=== PATIENT | male | born 1945 | race Caucasian/White ===

== ENCOUNTER 2019-03-02 09:54 | Emergency (ER) | payer OTHER, SELFPAY ==
[2019-03-02 09:56] VITALS: BP 212/101; PULSE 60; RESP 16; TEMP 36.8; O2SAT 97; BMI 32.5
--- NOTE | 2019-03-02 10:10 | CT_ITS ---
STUDY: CT SCAN OF THE RIGHT HIP WITHOUT CONTRAST. REASON FOR EXAM: Male, 73 years old. Right hip pain for one week. RADIATION DOSAGE (If Supplied By Facility): CTDIvol = ( 15.99 ) mGy, DLP = ( 550.86 ) mGycm. Individualized dose optimization techniques were used for this CT.? TECHNIQUE: Multiple axial cuts were obtained through the region of the right hip without intravenous contrast infusion. Sagittal and coronal reconstruction images were obtained. COMPARISON: None. FINDINGS: There are degenerative changes in the lower lumbar spine. The visualized right sacroiliac joint is unremarkable. The hip joint is within normal limits. There is no significant narrowing. Minimal marginal spurs are seen of the lateral aspect of the acetabular roof. The visualized sacrum and ilium are unremarkable. The pubic rami appear intact. The hip is intact. There is no evidence of fracture. Surgical sutures are seen in the region of the symphysis pubis. The soft tissues are unremarkable.. CT/Extremity Lower without Contra IMPRESSION: 1. Degenerative changes in the visualized lower lumbar spine. 2. No demonstrated acute fracture. Electronically Signed: Keaton Allan MD at 10:46 EST Tel , Service support ,
--- NOTE | 2019-03-02 10:11 | ED.DCSUM_ITS ---
History of Present Illness <Libby Medina - Last Filed: 03/02/19 11:08> Informant: Patient, Family Narrative: 73-year-old male presents with right hip pain. States this began 1 week ago. States that the pain is worse with ambulation and movement. States that he was originally seen at an urgent care and had received prednisone and a muscle relaxer. The pain continued and the patient was seen at [facility] emergency department 3 days ago where he had negative x-rays and received tramadol and a Lidoderm patch. Patient continues to have pain and was unable to get of bed today and had to call EMS to bring him to the emergency department. He denies any fever, chills. Patient states that the pain is sharp in nature. Denies any numbness or tingling. This is the patient's akut[place] hip. He denies any trauma to the area. States that the day before his pain began he was helping a friend move a washer. Does not remember injuring it at that time. <James Harrison - Last Filed: 03/02/19 14:04> Chief Complaint: Lower Extremity Injury Past Medical History <Annette Medinagaurioswaldo - Last Filed: 03/02/19 11:08> Prior records reviewed: Yes Past Medical History: - - Hypertension and hyperlipidemia Lives: Spouse/ Significant Other Smoking Status: Former smoker <James Harrison - Last Filed: 03/02/19 14:04> - Allergies and Home Meds Allergies/Adverse Reactions: Allergies No Known Allergies Allergy (Verified 03/02/19 09:55) Primary Care Physician: Mathieu Bernstein III, MD [Primary Care Provider] - Review of Systems General: Denies: Chills, Fever, Sweats Eyes: Denies: Visual changes - bilaterally, Diplopia ENT: Denies: Rhinorrhea, Sore throat Cardiovascular: Denies: Chest pain, Palpitations Respiratory: Denies: Dyspnea, Cough, Dyspnea on exertion Gastrointestinal: Denies: Abdominal pain, Nausea, Vomiting, Diarrhea, Melena, Hematochezia Genitourinary: Denies: Dysuria, Hematuria, Frequency Musculoskeletal: Reports: Arthralgias. Denies: Back pain, Extremity Pain Skin: Denies: Rash, Wounds Neurological: Denies: Headache, Weakness, Numbness <James Harrison - Last Filed: 03/02/19 14:04> Physical Exam Vital Signs/Narrative: Vital Signs Temp Pulse Resp BP Pulse Ox 03/02/19 09:56 98.2 F 60 16 212/101 H 97 <Libby Medina - Last Filed: 03/02/19 11:08> Vital Signs/Narrative: Vital Signs Temp Pulse Resp BP Pulse Ox 03/02/19 09:56 98.2 F 60 16 212/101 H 97 General: Well nourished, Well developed, No Acute Distress Head: Normocephalic, Atraumatic Eyes: Perrl, EOMI ENT: Moist mucous membranes, No rhinorrhea Neck: Supple, Nontender Cardiovascular: Regular rate, Regular rhythm, No murmurs Respiratory: No distress, CTA bilaterally, Chest nontender Abdomen: Soft, Nontender, Nondistended, Normal bowel sounds Back: Nontender, Normal Inspection Extremities: Tenderness - There is to palpation over the right greater trochanteric region. There is some color changes which are consistent with the patient using a heating pad. No significant erythema. I can range the patient's hip but he does have pain with this range of motion. Skin: Normal color, No rash Neurological: Alert, Oriented x3, Cranial nerves II-XII grossly intact, Normal Strength, Normal Sensation Psychological: Normal affect, Normal Mood <James Harrison - Last Filed: 03/02/19 14:04> Diagnostic/Tx/Re-eval - Medical Decision Making Patient was seen with Dr. Ernst agree with history and physical as above, right hip discomfort for some time after trying to move appliance no direct trauma he has had prior outpatient work-up that is been negative on exam he has near full range of motion of the hip his pain is nonspecific the thigh knee ankle and foot are unremarkable, the abdomen the rest exam is unremarkable, see the full chart for work-up and disposition planning <SatnampolynickoRashidmarichuy - Last Filed: 03/02/19 11:08> - Medical Decision Making Patient appears well nontoxic. Vital signs within normal limits. Full passive ROM completely without significant pain. Low concern for septic arthritis. CT was done to rule out occult fracture which was negative. Patient ambulated with a walker. Patient does continue to have pain and was given Toradol as well as Tylenol. Extensive discussion with the patient as well as his who are concerned that they cannot get into his home given he has 5 stairs leading up to their house. He also continues to have pain. Patient was offered admission at [facility]. They stated they would rather be discharged from our emergency department and drive by POV to be seen at [facility] given an orthopedic surgeon well-known to them works at that hospital. I did touch base with the transfer line and gave report to the [facility] ER that the patient will be coming for evaluation. Patient stable at time of discharge. <James Harrison - Last Filed: 03/02/19 14:04> ED Disposition <Libby Medina - Last Filed: 03/02/19 11:08> <James Harrison - Last Filed: 03/02/19 14:04> - Plan for ED Patient: Disposition: Acute Care Hospital - Other Diagnosis: Hip strain, Uncontrolled pain, Inability to ambulate due to hip Instructions: Hip Strain Prescriptions: Ibuprofen [Motrin] 600 mg PO TID PRN PRN #20 tab PRN Reason: Pain Score 4-5/10 Prescription Printed Acetaminophen [Tylenol Extra Strength] 500 - 1,000 mg PO TID #20 tab Prescription Printed Referrals: Mathieu Bernstein III, MD [Primary Care Provider] -
[2019-03-02] MEDS: Acetaminophen 500 MG Tablet 1000 MG PO (11:49)
[2019-03-02] MEDS: Ketorolac 15 MG/ML Vial IM (11:50)
[2019-03-02 11:54] VITALS: BP 147/62; PULSE 64; RESP 16; O2SAT 96
--- NOTE | 2019-03-02 12:31 | ED.RN ---
RN AMBULATED PATIENT PER REQUEST OF DR. PACE. PT AMBULATED WELL WITH WALKER BUT IS CONCERNED ABOUT STEPS AT HIS HOME. RN INFORMED DR. PACE AT THIS TIME.
[2019-03-02 14:21] VITALS: BP 156/53; PULSE 74; RESP 14; O2SAT 95
[2019-03-02 14:36] VITALS: BP 156/53; PULSE 74; RESP 14; O2SAT 95
== END 2019-03-02 14:38 | disposition short-term general hospital (02) ==
PROVIDERS: Emergency Provider Emergency Medicine; Family Provider Family Medicine; PCP Family Medicine
DX: S76.011A Strain of muscle, fascia and tendon of right hip, initial encounter (principal); X58.XXXA Exposure to other specified factors, initial encounter; Y93.9 Activity, unspecified; Y92.9 Unspecified place or not applicable; I10 Essential (primary) hypertension; E78.5 Hyperlipidemia, unspecified; Z79.899 Other long term (current) drug therapy; Z87.891 Personal history of nicotine dependence
CPT/HCPCS: 73700; 96372; 99285

== ENCOUNTER 2019-07-11 09:00 | Outpatient (RCR) | payer OTHER, SELFPAY ==
--- NOTE | 2019-04-23 12:12 | HP.PTEVAL_ITS ---
Patient's Visit Information MADHAVI MCCLAIN is a 73 year old M referred to Physical Therapy by CLIFFORD BROWN with a diagnosis of Lumbar Fusion. Date of Evaluation: 04/23/19 Physical Therapist: Mami Michaud DPT - Visit Plan Frequency: 2x /Week Duration: 4 Weeks Plan: Postureal correction, postural strengthing, dynamic lumbar stabilization with a neutral spine, bilateral LE ROM, strengthing and stretching - Subjective Findings: April 03, 2019 had a lumbar fusion in L4-L5 with clean out by Dr. Wise. This is his first back surgery. told him he has used his back hard for 70 years- he fell off a ladder 10 years ago but the pain went away. Has had back pain on/off for years- would get a twinge then it would go away. Sunday after (Beginning of February)- he went out on a job came home unloaded the truck- pulled the tool box out and the back the next day. Went to ER- due to pain in the right hip-they did an x-ray and sent him home. 2 days later he could not stand up- called the squat- they took him to [facility]- no images unless he was admitted- transferred to [facility] driven by car-ortho told him he needed to see a spine juancarlos- they did an MRI and he then he had surgery. Work: [employer]. Still has back pain at this time- it comes and goes. When sitting in the reclyner he is a 0/10 If he stands for an extended period of time Worst: 3/10. Uses Tylenol at night for pain. Pain is located in the back and on the inside of the right knee- when he was at the surgeon last week and they are unsure if its from the nerve or he could have screwed up the right knee (since its his bad knee). Describes the pain as twinges but mostly dull and achy. Feels like he is lacking strength- unable to squat and get back up. Wears the back brace standing for long period of time, walking, driving or riding. Sleep: slowly improving- sleeps on side and back (CPAP). No N/T in the LE. No loss or change in bowel or bladder. No currently working but plans to get back to work at some point. Walked around the yard yesterday and is itching to get back. PMHx: melanoma (10 years ago), HTN Meds: Tylenol, HTN Med, synthroid, gabapentin, cholesterol med, allergy med. Limitations: no bending, twisting, or lifting of more than 10 lbs. when left hospital. Saw last week and was told to gently start back into bending, lifting and twisting- wean from back brace. - Objective Posture sitting: fair- mild FH and RS- can correct but does not maintain. Standing posture: fair. wearing lumbar brace. Gait: no deviation noted. HR/TR: able without UE A. SLS: 3 sec then LOB. Sensation/Reflex: WNL in LE. ROM: WFL in all planes of the lumbar and bilateral LE. Flex: HS: severe, Gastroc: moderate. Dural signs: positive on the right. Strength: core: fair, Hip: left: 4+/5 Right: 4/5, Knee Flexion: Left: 5/5, Right: 4/5, Extn: Left: 5/5, Right: 4+/5, Ankle bilaterally: 5/5. Incision: healing well- small portion still has scab and is red- educated to continue to monitor with . - Goals Goal 1:: Patient will be I with HEP and progression Goal Time Frame: 4-6 Weeks Goal 2:: Patient will maintain proper posture t/o tx session to demo increased core s/s Goal Time Frame: 4-6 Weeks Goal 3:: Patient will demo 5/5 strength in bilateral LE Goal Time Frame: 4-6 Weeks Goal 4:: Patient will report no pain for 1 week Goal Time Frame: 4-6 Weeks - Rehabilitation Potential Physical Therapy Diagnosis: Patient presents with hypomobility s/p lumbar fusion- he has decrease strength, flex and muscular endurance leading to poor posture and increased pain with ADL's. Rehabilitation Potential: Good - Anticipated Interventions Patient/Client Instruction: Educate patient on: Benefits of Fitness Program Therapeutic Exercise to Include: Strength training, Endurance training, Agility training, Body mechanics, Postural training, Flexibilty training, Neuromotor development, Dynamic Lumbar Stabilization, Scapular Strength/Stabilization For the Purpose of:: To improve muscle performance and motor function TENS: Yes Cryotherapy (ice pack, ice massage): Yes Thermo therapy (hot pack): Yes Ultrasound (thermal/non thermal): No Thank you for the opportunity to evaluate your patient. For Medicare and Medicare HMO plans, please review the plan of care and approve it. It will need to be FAXED BACK to us at [phone] for Medicare purposes. For Medicare only, by signing this I certify the plan of care. Please let me know if there are questions or concerns regarding this plan of care. Physician Signature: Date:
--- NOTE | 2019-05-16 09:55 | HP.PTREVAL ---
CLIFFORD BROWN, It has been my pleasure to treat MADHAVI MCCLAIN over the last 9 visits for Lumbar Fusion. Please see the progress note below for an update on the physical therapy plan of care! Subjective: PATIENT REPORTS HE WENT DOWN ON HIS LEFT SIDE WHEN HE FELL SUNDAY BUT HE DIDN'T GET HURT EXCEPT HIS LEFT ARM. R THIGH PAIN TODAY 03/28. RLE PAIN IS GETTING BETTER. UP TO 3/10 PAIN AT WORST NOW. THE WORST TIME I HAVE IS WHEN I START TO WALK AT THE [place] OR THE FIRST TWO LAPS BUT CAN WALK WITHOUT RESTING NOW (AT LEAST 8 LAPS/1 MILE). PATIENT REPORTS HIS PAIN, MOBILITY AND STRENGTH ARE ALL IMPROVIING. Objective/Function: PATIENT WAS SEEN TODAY FOR RE-ASSESSMENT OF PROGRESS TOWARD THE SET PT GOALS AND THE NEED FOR FURTHER PHYSICAL THERAPY VS READINESS FOR DISCHARGE. PATIENT IS MAKING GOOD PROGRESS TOWARD ALL SET PT GOALS DESPITE SLIPPING AND FALLING ON THE ICE SUNDAY. HE IS A GOOD CANDIDATE TO CONTINUE PT BASED ON PROGRESS MADE AND ROOM FOR FURTHER IMPROVEMENT. UPON EXAM TODAY: PATIENT AMBULATES INDEP'LY INTO PT WITHOUT ANY ASSISTIVE DEVICES OR GROSS DEVICATIONS NOTED - EQUAL WEIGHTBEARING TIME EVE LE'S. PATIENT REPORTS THAT WHEN HE GETS TIRED HE MIGHT LIMP ON THE RIGHT LE. Motor deficit: EVE LE'S 5/5 WITH MMT'ING EXCEPT RIGHT HIP HAS MILD WEAKNESS COMPARED TO LEFT GRADED 4+/5. Sensory deficit: EVE LE LIGHT TOUCH SENSATION INTACT AND SYMMETRICAL. ROM deficit: TIGHT EVE LE HS'S AND GASTROC SOLEUS COMPLEX'S. Dural Signs: NEGATIVE EVE LE'S. Lumbar mvmt loss: flex - MOD. ext - ALICIA. R SG - MOD. L SG - MOD. PATIENT DENIES PAIN WITH LUMBAR ROM TESTING ALL PLANES BUT IT FEELS VERY TIGHT,. Core strength: FAIR. Palpation: INCISION IS WELL HEALED WITHOUT ANY SIGNS OF INFECTION. OTHER: PATIENT WAS PERFORMING AT LEAST ONE HOME EX WRONG - CORRECTION GIVEN. Plan Plan: CONT PER POC 2X'S A WK X 9-10 MORVE VISITS. Postural correction, postural strengthing, dynamic lumbar stabilization with a neutral spine, bilateral LE ROM, strengthing and stretching. *Return to gentle BLT, wean from back brace Goals Goal 1:: Patient will be I with HEP and progression Goal Time Frame: 4-6 Weeks Goal Progress: Progressing Goal 2:: Patient will maintain proper posture t/o tx session to demo increased core s/s Goal Time Frame: 4-6 Weeks Goal Progress: Progressing Goal 3:: Patient will demo 5/5 strength in bilateral LE Goal Time Frame: 4-6 Weeks Goal Progress: Progressing Goal 4:: Patient will report no pain for 1 week Goal Time Frame: 4-6 Weeks Goal Progress: Progressing Anticipated Interventions Patient/Client Instruction: Educate patient on: Benefits of Fitness Program Therapeutic Exercise to Include: Strength training, Endurance training, Agility training, Body mechanics, Postural training, Flexibilty training, Neuromotor development, Dynamic Lumbar Stabilization, Scapular Strength/Stabilization For the Purpose of:: To improve muscle performance and motor function TENS: Yes Cryotherapy (ice pack, ice massage): Yes Thermo therapy (hot pack): Yes Ultrasound (thermal/non thermal): No Please do not hesitate to contact me at [phone] by phone or if you have questions or concerns regarding this new plan of care! Sincerely, Lyndsey Levine, PT, Cert MDT
--- NOTE | 2019-06-19 09:44 | HP.PTREVAL ---
CLIFFORD BROWN, It has been my pleasure to treat MADHAVI MCCLAIN over the last 19 visits for Lumbar Fusion. Please see the progress note below for an update on the physical therapy plan of care! Subjective: PATIENT REPORTS HE IS DOING MUCH BETTER. STATES HE CAN STAND FOR ABOUT AN HOUR NOW BEFORE HIS BACK PAIN CAUSES HIM TO SIT. June SURGICAL FOLLOW UP PENDING. PATIENT REPORTS HE IS CONFIDENT THAT IT IS JUST GOING TO TAKE TIME TO CONTINUE TO BUILD UP HIS LEG STRENGTH. 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 Objective/Function: PATIENT WAS SEEN TODAY FOR RE-ASSESSMENT OF PROGRESS TOWARD THE SET PT GOALS AND THE NEED FOR FURTHER PHYSICAL THERAPY VS READINESS FOR DISCHARGE. PATIENT IS MAKING GOOD PROGRESS TOWARD ALL SET PT GOALS DESPITE SLIPPING AND FALLING ON THE ICE SUNDAY. HE IS A GOOD CANDIDATE TO CONTINUE PT BASED ON PROGRESS MADE AND ROOM FOR FURTHER IMPROVEMENT AND LACK OF ACCESS FOR [employer] GYM EX'S DUE TO VIRUS. UPON EXAM TODAY: PATIENT AMBULATES INDEP'LY INTO PT WITHOUT ANY ASSISTIVE DEVICES OR GROSS DEVICATIONS NOTED - EQUAL WEIGHTBEARING TIME EVE LE'S. Motor deficit: EVE LE'S 5/5 WITH MMT'ING. Sensory deficit: EVE LE LIGHT TOUCH SENSATION INTACT AND SYMMETRICAL. ROM deficit: TIGHT EVE LE HS'S AND GASTROC SOLEUS COMPLEX'S. Dural Signs: NEGATIVE EVE LE'S. Lumbar mvmt loss: flex - MIN. ext - ALICIA. R SG - MOD. L SG - MOD. PATIENT DENIES PAIN WITH LUMBAR ROM TESTING ALL PLANES BUT IT FEELS VERY TIGHT. Core strength: FAIR Plan Plan: Postural correction, postural strengthing, dynamic lumbar stabilization with a neutral spine, bilateral LE ROM, strengthing and stretching. *Return to gentle BLT* Goals Goal 1:: Patient will be I with HEP and progression Goal Time Frame: 4-6 Weeks Goal Progress: Progressing Goal 2:: Patient will maintain proper posture t/o tx session to demo increased core s/s Goal Time Frame: 4-6 Weeks Goal Progress: Progressing Goal 3:: Patient will demo 5/5 strength in bilateral LE Goal Time Frame: 4-6 Weeks Goal Progress: Progressing Goal 4:: Patient will report no pain for 1 week Goal Time Frame: 4-6 Weeks Goal Progress: Progressing Anticipated Interventions Patient/Client Instruction: Educate patient on: Benefits of Fitness Program Therapeutic Exercise to Include: Strength training, Endurance training, Agility training, Body mechanics, Postural training, Flexibilty training, Neuromotor development, Dynamic Lumbar Stabilization, Scapular Strength/Stabilization For the Purpose of:: To improve muscle performance and motor function TENS: Yes Cryotherapy (ice pack, ice massage): Yes Thermo therapy (hot pack): Yes Ultrasound (thermal/non thermal): No Please do not hesitate to contact me at [phone] by phone or if you have questions or concerns regarding this new plan of care! Sincerely, Lyndsey Levine, PT, Cert MDT
--- NOTE | 2019-07-11 11:06 | HP.PTDCSUM_ITS ---
It has been my pleasure to treat MADHAVI MCCLAIN referred by CLIFFORD BROWN, with the diagnosis of Lumbar Fusion for a total of 28 visit(s). Discharge Date: Please see the following information for a summary of their discharge status. Subjective: PATIENT REPORTS HE IS DOING GREAT. PATIENT REPORTS HIS PHYSICAL CAPABILITIES TODAY ARE BETTER NOW THAN BEFORE THE ACCIDENT. STATES HE DOES THINGS NOW WITH MORE CONFIDENCE THAN BEFORE. STATES HE IS USING HIS LEGS MORE TO DO THINGS TOO. YOU MADE ME SMARETER. PATIENT REPORTS HE IS GLAD HE WAS ABLE TO CONTINUE PT. PATIENT IS H[facility]ING [facility] [place] AND[facility]OR [facility] OPEN BACK UP. Lumbar Spine Pain Intensity (Out of 10): 0 RIGHT THIGH Pain Intensity (Out of 10): 0 RIGHT LEG Pain Intensity (Out of 10): 0 RIGHT KNEE Pain Intensity (Out of 10): 0 % Improvement: 100 Objective/Function: PATIENT WAS SEEN TODAY FOR RE-ASSESSMENT OF PROGRESS TOWARD THE SET PT GOALS AND THE NEED FOR FURTHER PHYSICAL THERAPY VS READINESS FOR DISCHARGE. ALL GOALS HAVE BEEN MET. 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 HE IS APPROPRIATE FOR DISCHARGE FROM [facility] AT THIS TIME AND IS AGREEABLE. UPON EXAM TODAY HE STILL HAS DECREASED LUMBAR ROM FOLLOWS: Lumbar mvmt loss: flex - MIN. ext - ALICIA. R SG - MOD. L SG - MIN TO MOD. EVE LE STRENGTH IS GOOD AND HIS CORE STRENGTH IS FAIR TO GOOD AND IMPROVING. PATIENT DENIES PAIN THROUGHOUT RE-CHECK. Goal 1:: Patient will be I with HEP and progression Goal Progress: Goal Met Goal 2:: Patient will maintain proper posture t/o tx session to demo increased core s/s Goal Progress: Goal Met Goal 3:: Patient will demo 5/5 strength in bilateral LE Goal Progress: Goal Met Goal 4:: Patient will report no pain for 1 week Goal Progress: Goal Met Plan: D/C. PATIENT AGREEABLE If there are questions or concerns regarding this patient's physical therapy, please feel free to call me at [phone]. Thank you for the referral of this patient. Sincerely, Lyndsey Levine, PT, Cert MDT
== END 2019-07-11 19:00 | disposition home or self-care (01) ==
LOC: PT 09:00
PROVIDERS: PCP Family Medicine
DX: M48.062 Spinal stenosis, lumbar region with neurogenic claudication (principal)
CPT/HCPCS: 97110; 97162; 97164; 97530

== ENCOUNTER 2021-07-04 11:00 | Outpatient (RCR) | payer OTHER, SELFPAY ==
--- NOTE | 2021-06-07 11:52 | HP.PTEVAL ---
Patient's Visit Information MADHAVI MCCLAIN is a 75 year old M referred to Physical Therapy by BURKE LANDA with a diagnosis of POST LAMINECTOMY SYNDROME. Date of Evaluation: 06/07/21 Physical Therapist: Lyndsey Levine PT, Cert MDT - Visit Plan Frequency: 2-3x /Week Duration: 4-6 Weeks Plan: AQUATIC THERAPY FOR POSTURE CORRECTION/STRENGTHENING, INSTRUCTION IN APPROPRIATE BODY MECHANICS AND ACTIVITY MODIFICATIONS. DLS STARTING WITH A NEUTRAL SPINE PROGRESSING ROM TOLERATED. EVE LE ROM, STRETCHING AND STRENGTHENING. HEP INSTRUCTION. INSTRUCTION IN APPROPRIATE RETURN TO GYM EX EQUIPMENT USE AT THE [facility]. 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 LAST WORKED ABOUT 3 WKS AGO. RECENTLY HAS NOT BEEN ABLE TO WORK DUE TO BACK PAIN. Disability: NO. Present symptoms: EVE LOW BACK/BUTTOCK PAIN. Present since: AUGUST 2020. Pain Scale: WORST 8/10, LEAST 0/10. Currently: 0/10. Commenced as a result of: NO APPARENT REASON OTHER THAN TRAVEL AND ON ONE OF THEIR HIKES CLIMBED OVER SOME ROCKS AND STEPPING DOWN HARD. WENT TO [place] IN AUGUST AND THEN TRAVELED TO [place] FOR 3 WEEKS. WALKED A LOT. Symptoms at onset: ANNOYING LBP. IN JANUARY WHEN HE CAME BACK FROM [place] IT WAS WORSE SO WENT BACK TO DR. LANDA. Worse: SUDDEN TWISTS LIKE WHEN SLIPPED ON THE ICE ON STEPS AT HOME APR 2021. FELL ON ICE TOO TAKING GARBAGE OUT. SITTING IN CERTAIN CHAIRS, SOME WALKING. MORNING WHEN FIRST GETS OUT OF BED. Better: THE DAY PROGRESSES, ACTUALLY GOES WAY. HOT SHOWER. TENS UNIT. Disturbed sleep: NO. Previous history/Previous treatment: LUMBAR FUSION L45 04/04/19 FOLLOWED BY PT WITH GREAT OUTCOME. Treatment this episode: PREDNISONE AND MUSCLE RELAXER WITH BENEFIT. ALEX YESTERDAY - IT WAS AMAZING. PATIENT REPORTS THAT WHEN HE GOT UP LAST NIGHT HE DIDN'T HAVE ANY PAIN AND HE COULD WALK UP STRAIGHT. NO PROBLEM THIS MORING EITHER BUT STILL A LITTLE OCCASSIONAL PAIN. Coughing/sneezing/straining: NO. Gait: WALKING LEANING TO LEFT SIDE BEFORE THE SHOT. Difficulty initiating urination: NO. DENIES BOWEL AND BLADDER DYSFUNCTION. Unexplained weight loss: NO. Imaging: RECENT X-RAYS AND MRI SHOWING SEVERE DEGENERATION. PMH/Recent major surgery: HIGH CHOLESTEROL, HTN, THYROID DZ, RLS. OTHER: WAS WALKING A FEW DAYS A WEEK AND USING MACHINES A FEW DAYS A WEEK AT THE [facility] UNTIL STOPPED MACHINES ABOUT JAN 2021 DUE TO PAIN. STILL WALKING. - Objective Sitting/Standing Posture: FAIR. REDUCED LORDOSIS. NO RELEVENT LATERAL SHIFT. Active Correction of posture: NE. Other Observations: INDEP GAIT AND TRANSFERS. Motor deficit: EVE LE'S GROSSLY 5/5. Sensory deficit: EVE LE LIGHT TOUCH SENSATION GROSSLY INTACT AND SYMMETRICAL. ROM deficit: TIGHT EVE LE HIP FLEXORS, HS'S AND GASTROC SOLEUS COMPLEX'S. Dural Signs: NEGATIVE EVE LE'S. Lumbar mvmt loss: flex - MIN. ext - ALICIA. R SG - MOD TO ALICIA. L SG - MOD. Core strength: FAIR. Palpation: NO ACUTE TENDERNESS. TREATMENT: NEUROMUSCULAR REEDUCATION - RETRAINING OF MVMT AND POSTURE FOR SITTING, LYING AND STANDING ACTIVITIES. - Balance/Special Test Scores Oswestry Low Back Score: 5 - Goals Goal 1:: DECREASE C/O LOW BACK PAIN Goal Time Frame: 4-6 Weeks Goal 2:: IMPROVE LIFTING, SITTING, SLEEP, SOCIAL LIFE AND WORK/HOMEMAKING FUNCTION Goal Time Frame: 4-6 Weeks Goal 3:: INSTRUCT IN PROPHYLAXIS Goal Time Frame: 4-6 Weeks - Anticipated Interventions Patient/Client Instruction: Educate patient on: Condition, Plan of Care, Risk Factors For the Purpose of:: To improve self management Therapeutic Exercise to Include: Strength training, Body mechanics, Postural training, Flexibilty training, Neuromotor development, In an aquatic setting, Dynamic Lumbar Stabilization For the Purpose of:: To decrease pain, To increase ROM, To improve muscle performance and motor function, To increase tolerance to activity/condition/position, To improve ability of physical actions for home/community/work/leisure Thank you for the opportunity to evaluate your patient. For Medicare and Medicare HMO plans, please review the plan of care and approve it. It will need to be FAXED BACK to us at [phone] for Medicare purposes. For Medicare only, by signing this I certify the plan of care. Please let me know if there are questions or concerns regarding this plan of care. Physician Signature: Date:
--- NOTE | 2021-07-04 11:35 | HP.PTREVAL_ITS ---
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 Please see the progress note below for an update on the physical therapy plan of care! Subjective: PATIENT REPORTS HE LEFT EACH AQUATIC THERAPY SESSION FEELING BETTER THAN WHEN HE ARRIVED. PATIENT REPORTS THAT IT HAS BECOME IMPOSSIBLE TO DO HIS HOME EX'S THOUGH ABOUT A WEEK AFTER HE STARTED THERAPY ON A SUNDAY WHEN HE WAS STRAINING TO CUT HIS TOE NAILS. ALEX 06/22/21 WITHOUT BENEFIT. LEFT LOW BACK PAIN IS STILL GONE FROM ALEX'S REC'D 06/06/21. 06/06/21 ALEX'S ALSO DECREASED R LBP FOR A WEEK BUT THEN THE PAIN CAME BACK WITH A VENGENCE. REA'T WITH DR. LANDA PENDING NEXT SUNDAY. HAS BEEN ON VACATION IN [place] THE PAST WEEK. SPENT TIME IN THE POOL IN [place] AND DID SOME OF HIS EX'S AND THAT HELPED. WALKED 2 BLOCKS TO THE POOL AND BACK EACH TIME AND EASIER TO WALK BACK AFTER THE POOL EX'S THAN WALKING THERE. PATIENT REPORTS HE DOES NOT RELATE HIS INCREASED PAIN AND DECREASED FUNCTION TO THE THERAPY. Objective/Function: PATIENT WAS SEEN TODAY FOR RE-ASSESSMENT OF PROGRESS TOWARD THE SET PT GOALS AND THE NEED FOR FURTHER PHYSICAL THERAPY VS READINESS FOR DISCHARGE. PATIENT IS NOT IMPROVING AND HAS WORSENED. HE IS APPROPRIATE FOR PHYSICIAN RE-CHECK AT THIS POINT AND HE IS AGREEABLE. UPON EXAM TODAY: THIS PATIENT LIMPS INTO PT WITH A RELEVENT LEFT LATERAL SHIFT. SENSATION: EVE LE LIGHT TOUCH SENSATION GROSSLY INTACT AND SYMMETRICAL. Dural Signs: NEGATIVE EVE LE'S. Lumbar mvmt loss: flex - MIN. ext - ALICIA. R SG - ALICIA. L SG - MOD. PATIENT C/O INCREASED PAIN WITH LUMBAR ROM TESTING ALL PLANES. STRENGTH: EVE LE STRENGTH IS STILL 5/5 WITH MMT'ING EXCEPT HIPS GRADED 4/5 AND APPEARS TO BE PAIN LIMITED. Palpation: NO ACUTE TENDERNESS IN THE LUMBOSACRAL REGIONS. Plan Plan: D/C TO FOLLOW UP WITH DR. LANDA. Balance/Gait/Functional tests - Balance/Special Test Scores Oswestry Low Back Score: 22 Goals Goal 1:: DECREASE C/O LOW BACK PAIN Goal Time Frame: 4-6 Weeks Goal Progress: Not Progressing Goal 2:: IMPROVE LIFTING, SITTING, SLEEP, SOCIAL LIFE AND WORK/HOMEMAKING FUNCTION Goal Time Frame: 4-6 Weeks Goal Progress: Not Progressing Goal 3:: INSTRUCT IN PROPHYLAXIS Goal Time Frame: 4-6 Weeks Goal Progress: Not Progressing Anticipated Interventions Patient/Client Instruction: Educate patient on: Condition, Plan of Care, Risk Factors For the Purpose of:: To improve self management Therapeutic Exercise to Include: Strength training, Body mechanics, Postural training, Flexibilty training, Neuromotor development, In an aquatic setting, Dynamic Lumbar Stabilization For the Purpose of:: To decrease pain, To increase ROM, To improve muscle performance and motor function, To increase tolerance to activity/condition/position, To improve ability of physical actions for home/community/work/leisure Please do not hesitate to contact me at [phone] by phone or if you have questions or concerns regarding this new plan of care! Sincerely, Lyndsey Levine, PT, Cert MDT
--- NOTE | 2021-07-04 11:36 | HP.PTDCSUM ---
It has been my pleasure to treat MADHAVI MCCLAIN referred by BURKE LANDA, with the diagnosis of POST LAMINECTOMY SYNDROME for a total of 10 visit(s). Discharge Date: 07/04/21 Please see the following information for a summary of their discharge status. Subjective: PATIENT REPORTS HE LEFT EACH AQUATIC THERAPY SESSION FEELING BETTER THAN WHEN HE ARRIVED. PATIENT REPORTS THAT IT HAS BECOME IMPOSSIBLE TO DO HIS HOME EX'S THOUGH ABOUT A WEEK AFTER HE STARTED THERAPY ON A SUNDAY WHEN HE WAS STRAINING TO CUT HIS TOE NAILS. ALEX 06/22/21 WITHOUT BENEFIT. LEFT LOW BACK PAIN IS STILL GONE FROM ALEX'S REC'D 06/06/21. 06/06/21 ALEX'S ALSO DECREASED R LBP FOR A WEEK BUT THEN THE PAIN CAME BACK WITH A VENGENCE. REA'T WITH DR. LANDA PENDING NEXT SUNDAY. HAS BEEN ON VACATION IN [place] THE PAST WEEK. SPENT TIME IN THE POOL IN [place] AND DID SOME OF HIS EX'S AND THAT HELPED. WALKED 2 BLOCKS TO THE POOL AND BACK EACH TIME AND EASIER TO WALK BACK AFTER THE POOL EX'S THAN WALKING THERE. PATIENT REPORTS HE DOES NOT RELATE HIS INCREASED PAIN AND DECREASED FUNCTION TO THE THERAPY. Lumbar Spine Pain Intensity (Out of 10): 4 % Improvement: 0 Objective/Function: PATIENT WAS SEEN TODAY FOR RE-ASSESSMENT OF PROGRESS TOWARD THE SET PT GOALS AND THE NEED FOR FURTHER PHYSICAL THERAPY VS READINESS FOR DISCHARGE. PATIENT IS NOT IMPROVING AND HAS WORSENED. HE IS APPROPRIATE FOR PHYSICIAN RE-CHECK AT THIS POINT AND HE IS AGREEABLE. UPON EXAM TODAY: THIS PATIENT LIMPS INTO PT WITH A RELEVENT LEFT LATERAL SHIFT. SENSATION: EVE LE LIGHT TOUCH SENSATION GROSSLY INTACT AND SYMMETRICAL. Dural Signs: NEGATIVE EVE LE'S. Lumbar mvmt loss: flex - MIN. ext - ALICIA. R SG - ALICIA. L SG - MOD. PATIENT C/O INCREASED PAIN WITH LUMBAR ROM TESTING ALL PLANES. STRENGTH: EVE LE STRENGTH IS STILL 5/5 WITH MMT'ING EXCEPT HIPS GRADED 4/5 AND APPEARS TO BE PAIN LIMITED. Palpation: NO ACUTE TENDERNESS IN THE LUMBOSACRAL REGIONS. Goal 1:: DECREASE C/O LOW BACK PAIN Goal Progress: Not Progressing Goal 2:: IMPROVE LIFTING, SITTING, SLEEP, SOCIAL LIFE AND WORK/HOMEMAKING FUNCTION Goal Progress: Not Progressing Goal 3:: INSTRUCT IN PROPHYLAXIS Goal Progress: Not Progressing Plan: D/C TO FOLLOW UP WITH DR. LANDA. If there are questions or concerns regarding this patient's physical therapy, please feel free to call me at [phone]. Thank you for the referral of this patient. Sincerely, Lyndsey Levine, PT, Cert MDT Balance/Gait/Functional tests - Balance/Special Test Scores Oswestry Low Back Score: 22
== END 2021-07-04 19:00 | disposition home or self-care (01) ==
LOC: PT 11:00
PROVIDERS: PCP Internal Medicine
DX: M96.1 Postlaminectomy syndrome, not elsewhere classified (principal)
CPT/HCPCS: 97112; 97113; 97162; 97164

== ENCOUNTER 2021-08-23 10:30 | Outpatient (RCR) | payer MEDICARE, OTHER, SELFPAY ==
--- NOTE | 2021-08-05 16:15 | HP.PTEVAL_ITS ---
Patient's Visit Information MADHAVI MCCLAIN is a 76 year old M referred to Physical Therapy by Dr. Lazaro Cardenas MD with a diagnosis of LUMBAR FUSION REVISION L45 AND L2-L4 FUSION 07/21/21. Date of Evaluation: 08/05/21 Physical Therapist: Lyndsey Levine, PT, Cert MDT - Visit Plan Frequency: 2-3x /Week Duration: 4-6 Weeks Plan: NO AGGRESSIVE PHYSICAL THERAPY. DO NOT INCREASE PAIN WITH EX. POSTURE CORRECTION/STRENGTHENING, INSTRUCTION IN APPROPRIATE BODY MECHANICS AND ACTIVITY MODIFICATIONS. DLS STARTING WITH A NEUTRAL SPINE (PROGRESSING ROM TOLERATED WHEN OK'D BY SURGEON). EVE LE ROM, STRETCHING AND STRENGTHENING. HEP INSTRUCTION. 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 Present symptoms: LOW BACK PAIN EVE. RIGHT MEDIAL KNEE PAIN. DENIES EVE LE NUMBNESS AND TINGLING. Present since: FEB 2019. Pain Scale: WORST 8/10, LEAST 0/10. Currently: 3/10. Commenced as a result of: LIFTING TOOL BOX OUT OF BACK OF [employer]IAN [employer]. Symptoms at onset: BACK AND RIGHT LE PAIN. Worse: PROLONGED SITTING, STADNING UP, SITTING DOWN, NOT STANDING UP STRAIGHT WHEN WALKING, STAIRS, SERIOUS PT. Better: TRAMADOL. Disturbed sleep: YES. Previous history/Previous treatment: MAR 2019 L45 FUSION. PT. ALEX'S. Treatment this episode: LUMBAR FUSION REVISION AND L2-L4 FUSION 07/21/21. Coughing/sneezing/straining: POSITIVE. Gait: PATIENT REPORTS HE WALKS BADLY AND HAS TO CONCENTRATE TO TRY TO KEEP HIS FEET FORWARD. WAS ABLE TO WALK BETTER LAST SUNDAY (1800 FEET) THAN HE CAN NOW DUE TO INACTIVITY. INCREASED DIFFICULTY WALKING AFTER PROLONGED SITTING IN W/C YESTERDAY 4-5 HOURS WAITING TO BE DISCHARGED FROM [facility]. Bowel or Bladder Dysfunction: NO. Accidents: NO. Unexplained weight loss: NO. Imaging: NONE SINCE SURGERY THAT PATIENT IS AWARE OF. PMH/Recent major surgery: UNREMARKABLE. OTHER: PATIENT DENIES ANY COMPLICATIONS AFTER SURGERY. 5 STEPS INTO HOUSE AND 13 STEPS UP TO SECOND FLOOR. FOLLOW UP PENDING SUNDAY WITH SURGEON (DR. LANDA). NO BENDING, LIFTING >5 LBS OR TWISTING. NO DRIVING. NO BACK BRACE. - Objective Sitting/Standing Posture: POOR. REDUCED LUMBAR LORDOSIS. Active Correction of posture: WORSE. Other Observations: THIS PATIENT AMBULATES INDEP'LY INTO PT WITH A FWW THAT IS SLIGHTLY TOO LOW. ADJUSTED BY THIS PT. DECREASED CADANCE. EVE TOEING OUT. DIFFICULTY TRANSITIONING FROM SIT TO STAND AND REVERSE AND VERY UE DEPENDENT TO DO SO. Sensory deficit: EVE LE LIGHT TOUCH SENSATION GROSSLY INTACT AND SYMMETRICAL - FEET NT. ROM deficit: TIGHT EVE LE HIP FLEXORS, HS AND GASTROC SOLEUS COMPLEX'S. Motor deficit: EVE HIPS 3+/5, KNEES 5/5, ANKLES 5/5. Dural Signs: POSITIVE EVE LE'S. Lumbar mvmt loss: NT. Core strength: POOR. TREATMENT: THER ACT - HOME INSTRUCTIONS GIVEN FOR SEATED AND SUPINE EVE LE DURAL STRETCHING X 10 TO 20 REPS 4-5 TIMES A DAY TOLERATED AND A WALKING PROGRAM. - Balance/Special Test Scores Oswestry Low Back Score: 33 TUG Test Time Seconds: 28.06 30 Second Chair Rise Test Seconds: 4 - Goals Goal 1:: DECREASE C/O LOW BACK PAIN Goal Time Frame: 4-6 Weeks Goal 2:: IMPROVE PERSONAL CARE, LIFTING, WALKING, SITTING, STANDING, SOCIAL LIFE, TRAVEL AND WORK/HOMEMAKING FUNCTION Goal Time Frame: 4-6 Weeks Goal 3:: INSTRUCT IN PROPHYLAXIS Goal Time Frame: 4-6 Weeks - Anticipated Interventions Patient/Client Instruction: Educate patient on: Condition, Plan of Care, Risk Factors For the Purpose of:: To improve self management Therapeutic Exercise to Include: Strength training, Body mechanics, Postural training, Flexibilty training, Gait and locomotor training, Neuromotor development, Dynamic Lumbar Stabilization For the Purpose of:: To decrease pain, To improve muscle performance and motor function, To increase tolerance to activity/condition/position, To improve ability of physical actions for home/community/work/leisure, To improve gait and locomotor functions Thank you for the opportunity to evaluate your patient. For Medicare and Medicare HMO plans, please review the plan of care and approve it. It will need to be FAXED BACK to us at [phone] for Medicare purposes. For Medicare only, by signing this I certify the plan of care. Please let me know if there are questions or concerns regarding this plan of care. Physician Signature: Date:
--- NOTE | 2021-08-23 11:29 | HP.PTREVAL ---
Dr. Lazaro Cardenas MD, It has been my pleasure to treat MADHAVI MCCLAIN over the last 9 visits for LUMBAR FUSION REVISION L45 AND L2-L4 FUSION 07/21/21. Please see the progress note below for an update on the physical therapy plan of care! Subjective: PATIENT REPORTS HE GOT A GOOD NIGHTS SLEEP AND FELT GOOD WHEN HE GOT UP. PATIENT REPORTS HE HASN'T FELT THIS GOOD SINCE ABOUT SEPTEMBER 2020 AFTER IT STARTED TO SETTLE DOWN FROM CLIMBING THE ROCKS WITH HIS SON. FROM ABOUT SEPTEMBER ON IT JUST KEPT GETTING WORSE. PATIENT REPORTS THAT HIS MAIN ACTIVITY GOAL IS TO BE ABLE TO WALK WHEN ON VACATIONS. Objective/Function: PATIENT WAS SEEN TODAY FOR RE-ASSESSMENT OF PROGRESS TOWARD THE SET PT GOALS AND THE NEED FOR FURTHER PHYSICAL THERAPY VS READINESS FOR DISCHARGE. UPON EXAM TODAY PATIENT IS INDEP WITH HEP AND IMPROVING. HE IS ABLE TO CONTINUE ON HIS OWN AT THIS POINT AND NEED FOR CONTINUED PT CAN BE EVALUTATED AT SURGICAL FOLLOW UP AT THE END OF THIS MONTH. PATIENT HAS MADE GREAT PROGRESS WITH PT AND AGREEABLE TO CONTINUING ON HIS OWN AT THIS POINT. LAST EXERCISE SESSION INCLUDED THE FOLLOWING: NUSTEP X 6 MIN, L-6, >70 SPM (SEAT #7, ARMS #10) INDEP PRIOR TO SESSION. HEEL RAISES 2X15 EA. NO UE'S. SLANT BOARD CALF STRETCHING 3X30. SIT TO STAND 2X15 WITHOUT UE ASSIST. K-4 MR'S 2X15. K-3 LAE'S 2X15. K-2 EVE MULTIFIDUS PUSH OUTS 2X15 EA. UP AND DOWN 2 FLIGHTS OF STEPS WITHOUT UE ASSIST X 2 SETS. INSTRUCTED IN SEATED AND SUPINE EVE LE DURAL STRETCHING 2X10 EA SEVERAL TIMES A DAY. PATIENT HAS TBANDS FOR HEP. Plan Plan: HOLD PT. PATIENT TO CONTINUE WITH INDEP EX UNTIL ORTHO FOLLOW UP. NO AGGRESSIVE PHYSICAL THERAPY. DO NOT INCREASE PAIN WITH EX. POSTURE CORRECTION/STRENGTHENING, INSTRUCTION IN APPROPRIATE BODY MECHANICS AND ACTIVITY MODIFICATIONS. DLS STARTING WITH A NEUTRAL SPINE (PROGRESSING ROM TOLERATED WHEN OK'D BY SURGEON). EVE LE ROM, STRETCHING AND STRENGTHENING. HEP INSTRUCTION. Balance/Gait/Functional tests - Balance/Special Test Scores Oswestry Low Back Score: 7 TUG Test Time Seconds: 28.06 Tug Test: 20-30sec.=variable mobility 30 Second Chair Rise Test Seconds: 4 Goals Goal 1:: DECREASE C/O LOW BACK PAIN Goal Time Frame: 4-6 Weeks Goal Progress: Progressing Goal 2:: IMPROVE PERSONAL CARE, LIFTING, WALKING, SITTING, STANDING, SOCIAL LIFE, TRAVEL AND WORK/HOMEMAKING FUNCTION Goal Time Frame: 4-6 Weeks Goal Progress: Progressing Goal 3:: INSTRUCT IN PROPHYLAXIS Goal Time Frame: 4-6 Weeks Goal Progress: Progressing Anticipated Interventions Patient/Client Instruction: Educate patient on: Condition, Plan of Care, Risk Factors For the Purpose of:: To improve self management Therapeutic Exercise to Include: Strength training, Body mechanics, Postural training, Flexibilty training, Gait and locomotor training, Neuromotor development, Dynamic Lumbar Stabilization For the Purpose of:: To decrease pain, To improve muscle performance and motor function, To increase tolerance to activity/condition/position, To improve ability of physical actions for home/community/work/leisure, To improve gait and locomotor functions Please do not hesitate to contact me at [phone] by phone or if you have questions or concerns regarding this new plan of care! Sincerely, Lydnsey Levine, PT, Cert MDT
--- NOTE | 2021-12-27 13:04 | HP.PT.NRP ---
MADHAVI MCCLAIN was seen in my office for initial evaluation on 08/05/21. The following Plan of Care was established for this patient: Initial Frequency: 2-3x /Week Initial Duration: 4-6 Weeks Patient/Client Instruction: Educate patient on: Condition, Plan of Care, Risk Factors For the Purpose of:: To improve self management Therapeutic Exercise to Include: Strength training, Body mechanics, Postural training, Flexibilty training, Gait and locomotor training, Neuromotor development, Dynamic Lumbar Stabilization For the Purpose of:: To decrease pain, To improve muscle performance and motor function, To increase tolerance to activity/condition/position, To improve ability of physical actions for home/community/work/leisure, To improve gait and locomotor functions This patient was last seen in our office 08/23/21. Pertinent comments regarding their Physical therapy will appear below: This patient has not returned to Physical Therapy and is appropriate to return to MD for further follow-up as needed. At this point I will be discontinuing this patient from physical therapy. I would be happy to see this patient again in the future if found appropriate by the physician. Thank you! Lyndsey Levine, PT, Cert MDT Balance/Gait/Functional tests - Balance/Special Test Scores Oswestry Low Back Score: 7 TUG Test Time Seconds: 28.06 Tug Test: 20-30sec.=variable mobility 30 Second Chair Rise Test Seconds: 4
== END 2021-08-23 19:00 | disposition home or self-care (01) ==
LOC: PT 10:30
PROVIDERS: PCP Internal Medicine; Referring Provider Physical Medicine & Rehabilitation; Visit Provider Physical Medicine & Rehabilitation
DX: M48.062 Spinal stenosis, lumbar region with neurogenic claudication (principal)
CPT/HCPCS: 97110; 97112; 97162; 97164; 97530

== ENCOUNTER 2023-07-02 08:30 | Outpatient (RCR) | payer MEDICARE, OTHER, SELFPAY ==
--- NOTE | 2023-04-10 13:01 | HP.PTEVAL ---
Patient's Visit Information Visit Information Visit Information: MADHAVI MCCLAIN is a 77 year old M referred to Physical Therapy by Dr. Joe Moran MD with a diagnosis of L RC syndrome. Date of Evaluation: 04/10/23 Physical Therapist: LEXIS Patrick Visit Plan Frequency: 2x /Week Duration: 2 Months Plan: 2X/ week for 8 weeks for pec stretches, scapular strength/postural, RC strength with HEP HEP: corner pec stretch, and green mid rows Subjective Subjective: Pt thinks that he hurt his shoulder when he was redoing his bathroom in August/September. He was using a power dry wall lui overhand with his L arm overhead. It was a long narrow bathroom and got himself in awkward positions. His shoulder started to hurt then and it did not get any better. He had trouble sleeping in the fall (it would burn). He normally starts to sleep on his L side but he now can not do that. He just saw his Dr last week and looked at the MRI that they had done and it showed a frayed RC cuff and no surgery can be done. He had a cortisone shot prior to [place] and it helped for about 2 weeks...back to laying on the L side and then it was back. It is not a s bad as it was prior to the shot. Pain R shoulder pain: Pain Intensity (Out of 10): 1 Pain Intensity Range: 5 Objective Objective: R handed UE AROM: B WFL... tighter at end range flex/abd R shoulder flex 11.8 and L 8.2 R shoulder abd 14.3 and L 11.3 R shoulder ER 16.5 and L 15.1 R shoulder IR 15.8 and L 14 Posture: rounded shoulders, weak scapular muscles and tight pecs Balance/Special Test Scores Quick DASH Score: 20.4525 Goals Goal 1:: I HEP Goal Time Frame: 6-8 Weeks Goal 2:: Sit with more upright posture Goal Time Frame: 6-8 Weeks Goal 3:: Increase L shoulder strength (at the time of the eval: R shoulder flex 11.8 and L 8.2 R shoulder abd 14.3 and L 11.3 R shoulder ER 16.5 and L 15.1 R shoulder IR 15.8 and L 14) Goal Time Frame: 6-8 Weeks Goal 4:: Be able to resume ADL's/overhead activities with L UE without pain Goal Time Frame: 6-8 Weeks Rehabilitation Potential Rehabilitation Potential: Good Anticipated Interventions Patient/Client Instruction: Educate patient on: Condition and Plan of Care For the Purpose of:: To decrease pain, To increase ROM, To improve nutrient delivery to tissue, To improve muscle performance and motor function, To improve ability to perform ADL's, To increase tolerance to activity/condition/position, To improve health of tissue, To decrease soft tissue restriction and To increase flexibility/ROM Therapeutic Exercise to Include: Strength training, Postural training, Flexibilty training, Neuromotor development, Passive ROM, Active ROM and Scapular Strength/Stabilization For the Purpose of:: To decrease pain, To increase ROM, To improve muscle performance and motor function, To improve ability to perform ADL's, To improve performance and independence with ADL's, To decrease level of supervision to perform tasks, To improve health of tissue, To decrease soft tissue restriction and To increase flexibility/ROM Manual Therapy Techniques to Include: Mobilization, Passive ROM and Soft tissue mobilization For the Purpose of:: To increase ROM, To improve nutrient delivery to tissue and To improve muscle performance and motor function Cryotherapy (ice pack, ice massage): Yes Thermo therapy (hot pack): Yes For the Purpose of:: To decrease pain, To decrease swelling/inflammation and To improve nutrient delivery to tissue Text: Thank you for the opportunity to evaluate your patient. For Medicare and Medicare HMO plans, please review the plan of care and approve it. It will need to be FAXED BACK to us at [phone] for Medicare purposes. For Medicare only, by signing this I certify the plan of care. Please let me know if there are questions or concerns regarding this plan of care. Physician Signature: Date:
--- NOTE | 2023-05-08 12:21 | HP.PTREVAL ---
Re-Evaluation Intro: Dr. Joe Moran MD, It has been my pleasure to treat MADHAVI MCCLAIN over the last 9 visits for L RC syndrome. Please see the progress note below for an update on the physical therapy plan of care! Subjective Subjective: Putting a coat on a coat hook hurts on the L or putting something overhead. In the last week he could feel his shoulder a little more than the week before. Objective Objective/Function: R shoulder flex 11.8 and L 10.8 R shoulder abd 14.3 and L 12.4 R shoulder ER 16.5 and L 19.7 R shoulder IR 15.8 and L 18 Plan Plan Plan: Pt is going to [place] and will schedule a re check if he needs one when he gets back. 2X/ week for 8 weeks for pec stretches, scapular strength/postural, RC strength with HEP Balance/Gait/Functional tests Balance/Special Test Scores Quick DASH Score: 11.3625 Goals Goals Goal 1:: I HEP Goal Time Frame: 6-8 Weeks Goal Progress: Goal Met Goal 2:: Sit with more upright posture Goal Time Frame: 6-8 Weeks Goal Progress: Progressing Goal 3:: Increase L shoulder strength (at the time of the eval: R shoulder flex 11.8 and L 8.2 R shoulder abd 14.3 and L 11.3 R shoulder ER 16.5 and L 15.1 R shoulder IR 15.8 and L 14) Goal Time Frame: 6-8 Weeks Goal Progress: Goal Met Goal 4:: Be able to resume ADL's/overhead activities with L UE without pain Goal Time Frame: 6-8 Weeks Goal Progress: Progressing Anticipated Interventions Anticipated Interventions Patient/Client Instruction: Educate patient on: Condition and Plan of Care For the Purpose of:: To decrease pain, To increase ROM, To improve nutrient delivery to tissue, To improve muscle performance and motor function, To improve ability to perform ADL's, To increase tolerance to activity/condition/position, To improve health of tissue, To decrease soft tissue restriction and To increase flexibility/ROM Therapeutic Exercise to Include: Strength training, Postural training, Flexibilty training, Neuromotor development, Passive ROM, Active ROM and Scapular Strength/Stabilization For the Purpose of:: To decrease pain, To increase ROM, To improve muscle performance and motor function, To improve ability to perform ADL's, To improve performance and independence with ADL's, To decrease level of supervision to perform tasks, To improve health of tissue, To decrease soft tissue restriction and To increase flexibility/ROM Manual Therapy Techniques to Include: Mobilization, Passive ROM and Soft tissue mobilization For the Purpose of:: To increase ROM, To improve nutrient delivery to tissue and To improve muscle performance and motor function Cryotherapy (ice pack, ice massage): Yes Thermo therapy (hot pack): Yes For the Purpose of:: To decrease pain, To decrease swelling/inflammation and To improve nutrient delivery to tissue Re-Evaluation Ending Re-evaluation ending: Please do not hesitate to contact me at [phone] by phone or if you have questions or concerns regarding this new plan of care! Sincerely, Elaine Mora MPT
--- NOTE | 2023-07-02 08:52 | HP.PTDCSUM ---
Discharge Summary D/C summary: It has been my pleasure to treat MADHAVI MCCLAIN referred by Dr. Joe Moran MD, with the diagnosis of L RC syndrome for a total of 18 visit(s). Discharge Date: 07/02/23 Please see the following information for a summary of their discharge status. Subjective Subjective: He woke up in a hotel room with some pain in his shoulder because sleeping on weird bed. He is back to normal since sleeping in his own bed. He feels strong. He continues to do a lot around the yard and house. He has all his exercises that he can do. Pain R shoulder pain: Pain Intensity (Out of 10): 4 Left Shld: Pain Intensity (Out of 10): 0 Overall Improvement % Improvement: 100 Objective Objective/Function: Shoulder strength: R shoulder flex 15.5 and L 15.8 R shoulder abd 14.3 and L 13.8 R shoulder ER 16.5 and L 19.7 R shoulder IR 15.8 and L 16.8 Goals Goal 1:: I HEP Goal Progress: Goal Met Goal 2:: Sit with more upright posture Goal Progress: Goal Met Goal 3:: Increase L shoulder strength (at the time of the eval: R shoulder flex 11.8 and L 8.2 R shoulder abd 14.3 and L 11.3 R shoulder ER 16.5 and L 15.1 R shoulder IR 15.8 and L 14) Goal Progress: Goal Met Goal 4:: Be able to resume ADL's/overhead activities with L UE without pain Goal Progress: Goal Met Plan Plan: DC PT to HEP D/C Information Discharge Comments: DC PT to HEP d/c sentence: If there are questions or concerns regarding this patient's physical therapy, please feel free to call me at [phone]. Thank you for the referral of this patient. Sincerely, Elaine Mora, MPT Balance/Gait/Functional tests Balance/Special Test Scores Quick DASH Score: 2.2725 Improvement % Improvement: 100
== END 2023-07-02 19:00 | disposition home or self-care (01) ==
LOC: PT 08:30
PROVIDERS: PCP Internal Medicine; Referring Provider Orthopaedic Surgery; Visit Provider Orthopaedic Surgery
DX: M75.102 Unspecified rotator cuff tear or rupture of left shoulder, not specified as traumatic (principal)
CPT/HCPCS: 97110; 97161; 97530